=== PATIENT | male | born 1985 | race Caucasian/White ===

== ENCOUNTER 2019-03-26 16:30 | Emergency (ER) | payer SELFPAY ==
[2019-03-26 16:36] VITALS: BP 118/76
[2019-03-26] MEDS ORDERED: IBUPROFEN 800 MG TABLET PO ONE (17:25)
--- NOTE | 2019-03-26 17:27 | ER Document Report ---
HPI - HPI Patient complains to provider of: right hand pain Time Seen by Provider: 03/26/19 17:19 Onset: This afternoon Onset/Duration: Sudden Quality of pain: Achy Context: This 33-year-old male presents emergency department with right hand pain. Reports he was goofing around with his cousins they were play fighting and he punched the door and hurting his hand. Reports history of fracture to the hand when he was younger. Ibuprofen offered and accepted. Associated Symptoms: None Exacerbated by: Movement Relieved by: Denies Similar symptoms previously: No Recently seen / treated by doctor: No Past Medical History - General Information source: Patient - Social History Smoking Status: Current Every Day Smoker Cigarette use (# per day): Yes Frequency of alcohol use: None Drug Abuse: None Occupation: [employer] Family History: None Patient has suicidal ideation: No Patient has homicidal ideation: No Traumatic Medical History: Reports: Hx Fractures Surgical Hx: Negative Vertical Provider Document - CONSTITUTIONAL Agree With Documented VS: Yes Exam Limitations: No Limitations General Appearance: WD/WN, No Apparent Distress - HEENT HEENT: Atraumatic, Normocephalic - NECK Neck: Supple - RESPIRATORY Respiratory: No Respiratory Distress - CARDIOVASCULAR Cardiovascular: Regular Rate - MUSCULOSKELETAL/EXTREMETIES Musculoskeletal/Extremeties: MAEW, FROM, Tender - right hand ttp with swelling across dorsally 3-5 metacarpals, no open wounds, cap refill <3 sec - NEURO Level of Consciousness: Awake, Alert, Appropriate Motor/Sensory: No Motor Deficit - DERM Integumentary: Warm, Dry Course - Re-evaluation Re-evalutation: 03/26/19 17:26 This 33-year-old male presents emergency department right hand pain after he punched a doorway while playing with his cousins. Dorsally right hand is tender to palpate with some swelling across the third through fifth metacarpals. Cap refill less than 2 seconds radial pulse good. X-ray and Motrin ordered. 03/26/19 18:21 Hand X-Ray 03/26/19 17:23 IMPRESSION: Nondisplaced 5th metacarpal proximal diaphyseal fracture with minimal foreshortening and mild ulnar hand soft tissue swelling. 5th metacarpal fx noted. Patient instructed on the result given a picture of his x-ray. Splint placed. Patient was instructed to follow-up with orthopedics. He verbalized understanding to all instructions. Dictation of this chart was performed using voice recognition software; therefore, there may be some unintended grammatical errors. - Vital Signs Vital signs: Temp Pulse Resp BP Pulse Ox 97.7 F 74 18 118/76 96 03/26/19 16:35 03/26/19 16:35 03/26/19 16:35 03/26/19 16:35 03/26/19 16:35 - Diagnostic Test Radiology reviewed: Image reviewed, Reports reviewed Procedures - Immobilization Right Hand Pre-Proc Neuro Vasc Exam: Normal Immobilizer type: Volar splint - boxers Performed by: PCT Post-Proc Neuro Vasc Exam: Unchanged from pre-exam Alignment checked and good: Yes Discharge - Discharge Clinical Impression: Right hand pain Closed fracture of 5th metacarpal Qualifiers: Encounter type: initial encounter Metacarpal location: base Fracture alignment: nondisplaced Laterality: right Qualified Code(s): S62.346A - Nondisplaced fracture of base of fifth metacarpal bone, right hand, initial encounter for closed fracture Condition: Stable Disposition: HOME, SELF-CARE Instructions: Fractured Fifth Metacarpal ([facility]), Use of [id number] Ibuprofen ([facility]), Ice & Elevation ([facility]), Splint Pending Casting ([facility]) Additional Instructions: *You have been evaluated for fractured fifth metacarpal *Maintain the splint *Rest/Ice/Elevate your hand *Follow up with orthopedics within 1 week *Take ibuprofen as indicated for pain *Return to ED for worsening condition, changes, needs Referrals: [facility] [Provider Group] - Follow up as needed VELMA REILLY JR, DO [ACTIVE PROVISIONAL STAFF] - Follow up as needed SYDNEE ORDONEZ MD [ACTIVE PROVISIONAL STAFF] - Follow up as needed
--- NOTE | 2019-03-26 17:51 | RADIOLOGY REPORT (SQ) ---
EXAM DESCRIPTION: HAND RIGHT 3 VIEWS COMPLETED DATE/TIME: 03/26/2019 5:39 pm REASON FOR STUDY: pain punched door COMPARISON: None. EXAM PARAMETERS: NUMBER OF VIEWS: Three views. TECHNIQUE: AP, lateral and oblique radiographic images acquired of the right hand. LIMITATIONS: None. FINDINGS: MINERALIZATION: Normal. BONES: Nondisplaced 5th metacarpal proximal diaphyseal fracture with minimal foreshortening and no in tra-articular extension. JOINTS: No effusions. SOFT TISSUES: Mild ulnar hand soft tissue swelling. OTHER: No other significant finding. IMPRESSION: Nondisplaced 5th metacarpal proximal diaphyseal fracture with minimal foreshortening and mild ulnar hand soft tissue swelling. TECHNICAL DOCUMENTATION: JOB ID: [id number] [employer]- All Rights Reserved Reading location - IP/workstation name: [email or web address]
== END 2019-03-26 18:26 | disposition home or self-care (01) ==
LOC: ER 16:30
DX: S62.346A Nondisplaced fracture of base of fifth metacarpal bone, right hand, initial encounter for closed fracture (principal); F17.210 Nicotine dependence, cigarettes, uncomplicated; W22.09XA Striking against other stationary object, initial encounter
CPT/HCPCS: 99283